=== PATIENT | male | born 1940 ===

== ENCOUNTER 2017-01-20 20:34 | Inpatient (IN) | payer OTHER ==
[2017-01-20 21:23] VITALS: BMI 37.0
--- NOTE | 2017-01-20 23:11 | CP.PCM.HP ---
History of Present Illness - History of Present Illness History of Present Illness: CC: s/p Cardiac arrest, multiple CHETAN, and AICD placement HPI: This is a 76 y/o male with only HTN who had a recent Dx of CAD and subsequent cath/PCI with CHETAN at [facility] the day of admission. He was brought in by EMS to [facility] after suffering cardiac arrest. He had been successfully resuscitated and intubated in ED, a code heart was activated, and he was sent for second cardiac cath to r/o acute occlusion of stent. Stent was noted to be patent, and patient had normal LVEF, however, he had another cardiac arrest and was resuscitated again, and this time started on lidocaine IV. He was sent to [facility] where he had placement of AICD. post-op patient remained stable, and he is here for rehabilitation in TCU. Patient has no c/c at this time. No CP/SOB. No f /c/n/v/d. ROS: 14 systems reviewed, negative other than HPI MHx: HTN, CAD SHx: s/p CHETAN recently, s/p AICD placement recently Allergies: NKDA Medications: As per discharge medications from [facility] Family Hx: Non-contributory to current illness Social Hx: Lives with family, no tobacco or EtOH Surrogate: , listed on chart Present on Admission - Present on Admission Any Indicators Present on Admission: No Past Patient History - Past Medical History & Family History Past Medical History?: Yes - Past Social History Smoking Status: Unknown If Ever Smoked - CARDIAC Hx Hypertension: Yes - PULMONARY Hx Respiratory Disorders: No - NEUROLOGICAL Hx Neurological Disorder: No - HEENT Hx HEENT Problems: No - RENAL Hx Chronic Kidney Disease: No - ENDOCRINE/METABOLIC Hx Diabetes Mellitus Type 2: Yes - HEMATOLOGICAL/ONCOLOGICAL Hx Blood Disorders: No - INTEGUMENTARY Hx Dermatological Problems: No - MUSCULOSKELETAL/RHEUMATOLOGICAL Hx Musculoskeletal Disorders: No - GASTROINTESTINAL Hx Gastrointestinal Disorders: Yes - GENITOURINARY/GYNECOLOGICAL Hx Genitourinary Disorders: No - PSYCHIATRIC Hx Substance Use: No - SURGICAL HISTORY Hx Coronary Stent: Yes - ANESTHESIA Hx Anesthesia: Yes Meds Allergies/Adverse Reactions: Allergies Allergy/AdvReac Type Severity Reaction Status Date / Time No Known Allergies Allergy Verified 01/11/17 21:43 Physical Exam - Constitutional Appears: No Acute Distress - Head Exam Head Exam: ATRAUMATIC, NORMOCEPHALIC - Eye Exam Eye Exam: EOMI, PERRL - ENT Exam ENT Exam: Mucous Membranes Moist - Neck Exam Neck exam: Positive for: Full Rom - Respiratory Exam Respiratory Exam: Clear to Auscultation Bilateral - Cardiovascular Exam Cardiovascular Exam: REGULAR RHYTHM - GI/Abdominal Exam GI & Abdominal Exam: Normal Bowel Sounds, Soft - Extremities Exam Extremities exam: Positive for: full ROM - Neurological Exam Neurological exam: Alert, CN II-XII Intact, Oriented x3 - Psychiatric Exam Psychiatric exam: Normal Affect, Normal Mood - Skin Skin Exam: Dry, Warm Assessment & Plan (1) Cardiac arrest Assessment and Plan: 76 y/o male here for rehab s/p cardiac arrest. 1) s/p cardiac arrest/CAD/HTN -Cont mexilitene PO -Cont betablocker, statin, plavix, ASA -Consider ACEi if patient BT stable -PT eval/treat 2) DVT PPx -- sq heparin Status: Acute (2) HTN (hypertension) Status: Chronic (3) DVT prophylaxis Status: Acute
[2017-01-21 08:18] LABS: HEMATOCRIT 44.8 % (35.0-51.0); MEAN CELL VOLUME 97.3 fl (80.0-94.0); MEAN CORPUSCULAR HEMOGLOBIN 33.1 pg (27.0-31.0); MEAN CORPUSCULAR HGB CONC 34.1 g/dL (33.0-37.0); WHITE BLOOD COUNT 6.9 K/uL (4.8-10.8)
[2017-01-21] MEDS: Potassium Chloride 20 mEq ER Tab PO SCH (08:24)
[2017-01-21 08:47] LABS: BLOOD UREA NITROGEN 11 mg/dl (9-20); CALCIUM 9.5 mg/dL (8.4-10.2); CARBON DIOXIDE 25 mmol/L (22-30); CHLORIDE 107 mmol/L (98-107); GFR AFRICAN-AMERICAN > 60; GLUCOSE,RANDOM 98 mg/dL (75-110); POTASSIUM 4.6 MMOL/L (3.6-5.0); SODIUM 140 mmol/l (132-148)
--- NOTE | 2017-01-21 10:43 | CARD ---
APPROVED REPORT EKG Measurement Heart [id number] <Conclusion> Normal sinus rhythm Left axis deviation Pulmonary disease pattern Abnormal ECG
[2017-01-22] MEDS: Potassium Chloride 20 mEq ER Tab PO SCH (08:31)
[2017-01-23] MEDS: Potassium Chloride 20 mEq ER Tab PO SCH (08:17)
[2017-01-23 16:00] VITALS: RESP 20
[2017-01-24] MEDS: Potassium Chloride 20 mEq ER Tab PO SCH (08:56)
[2017-01-25] MEDS: Potassium Chloride 20 mEq ER Tab PO SCH (08:15)
[2017-01-26] MEDS: Potassium Chloride 20 mEq ER Tab PO SCH (08:28)
--- NOTE | 2017-01-26 12:05 | CP.PCM.PN ---
Subjective - Date & Time of Evaluation Date of Evaluation: 01/26/17 Time of Evaluation: 09:40 - Subjective Subjective: Patient was seen and examind at bedside. He has no complaints today. He says he is feeling well. Doing well with physical therapy and regaining his strength. Denies cp, sob, n/v/d, weakness, headache. Objective - Vital Signs/Intake and Output Vital Signs (last 24 hours): Temp Pulse Resp BP Pulse Ox 97.2 F L 60 20 105/70 99 01/26/17 08:09 01/26/17 08:27 01/26/17 08:09 01/26/17 08:27 01/26/17 08:09 - Medications Medications: Current Medications Acetaminophen (Tylenol 325mg Tab) 650 mg PO Q4 PRN PRN Reason: Pain, Mild (1-3) Aspirin (Ecotrin) 81 mg PO DAILY [facility] Last Admin: 01/26/17 08:26 Dose: 81 mg Atorvastatin Calcium (Lipitor) 50 mg PO HS [facility] Last Admin: 01/25/17 21:10 Dose: 50 mg Carvedilol (Coreg) 3.125 mg PO BID [facility] Last Admin: 01/26/17 08:26 Dose: 3.125 mg Clopidogrel Bisulfate (Plavix) 75 mg PO DAILY [facility] Last Admin: 01/26/17 08:27 Dose: 75 mg Docusate Sodium (Colace) 100 mg PO TID [facility] Last Admin: 01/26/17 08:27 Dose: 100 mg Donepezil HCl (Aricept) 10 mg PO HS [facility] Last Admin: 01/25/17 21:10 Dose: 10 mg Famotidine (Pepcid) 20 mg PO Q12@0900,2000 [facility] Last Admin: 01/26/17 08:27 Dose: 20 mg Heparin Sodium (Porcine) (Heparin) 5,000 units SC Q8 [facility] PRN Reason: Protocol Last Admin: 01/26/17 08:27 Dose: 5,000 units Mexiletine HCl (Mexiletine) 150 mg PO Q8 [facility] Last Admin: 01/26/17 08:27 Dose: 150 mg Potassium Chloride (K-Dur 20 Meq Er Tab) 40 meq PO BRK [facility] Last Admin: 01/26/17 08:28 Dose: 40 meq Sennosides (Senokot Tab) 8.6 mg PO HS [facility] Last Admin: 01/25/17 21:10 Dose: 8.6 mg - Labs Labs: 01/21/17 08:06 01/21/17 08:06 - Additional Findings Additional findings: Physical Exam - Constitutional Appears: No Acute Distress - Head Exam Head Exam: ATRAUMATIC, NORMOCEPHALIC - Eye Exam Eye Exam: EOMI, PERRL - ENT Exam ENT Exam: Mucous Membranes Moist - Neck Exam Neck exam: Positive for: Full Rom - Respiratory Exam Respiratory Exam: Clear to Auscultation Bilateral - Cardiovascular Exam Cardiovascular Exam: REGULAR RHYTHM - GI/Abdominal Exam GI & Abdominal Exam: Normal Bowel Sounds, Soft - Extremities Exam Extremities exam: Positive for: full ROM - Neurological Exam Neurological exam: Alert, CN II-XII Intact, Oriented x3 - Psychiatric Exam Psychiatric exam: Normal Affect, Normal Mood - Skin Skin Exam: Dry, Warm Assessment and Plan - Assessment and Plan (Free Text) Plan: Assessment & Plan (1) Cardiac arrest Assessment and Plan: 76 y/o male here for rehab s/p cardiac arrest. 1) s/p cardiac arrest/CAD/HTN -Cont mexilitene PO -Cont betablocker, statin, plavix, ASA -Consider ACEi if patient BT stable -PT eval/treat 2) DVT PPx -- sq heparin Status: Acute (2) HTN (hypertension) Status: Chronic (3) DVT prophylaxis Status: Acute
[2017-01-27 00:04] VITALS: PULSE 60
[2017-01-27] MEDS: Potassium Chloride 20 mEq ER Tab PO SCH (08:11)
[2017-01-27 08:12] VITALS: BP 101/52
[2017-01-27 08:17] VITALS: TEMP 97.9; O2SAT 98
--- NOTE | 2017-01-27 12:16 | CP.PCM.DIS ---
Provider - Provider Date of Admission: 01/20/17 21:27 Attending physician: Yany Singh MD Primary care physician: Dr. Ramirez Time Spent in preparation of Discharge (in minutes): 20 Hospital Course - Lab Results Lab Results: Most Recent Lab Values WBC 6.9 K/uL (4.8-10.8) 01/21/17 08:06 RBC 4.60 Mil/uL (4.40-5.90) 01/21/17 08:06 Hgb 15.3 g/dL (12.0-18.0) 01/21/17 08:06 Hct 44.8 % (35.0-51.0) 01/21/17 08:06 MCV 97.3 fl (80.0-94.0) H 01/21/17 08:06 MCH 33.1 pg (27.0-31.0) H 01/21/17 08:06 MCHC 34.1 g/dL (33.0-37.0) 01/21/17 08:06 RDW 14.0 % (11.5-14.5) 01/21/17 08:06 Plt Count 228 K/uL (130-400) 01/21/17 08:06 Sodium 140 mmol/l (132-148) 01/21/17 08:06 Potassium 4.6 MMOL/L (3.6-5.0) 01/21/17 08:06 Chloride 107 mmol/L (98-107) 01/21/17 08:06 Carbon Dioxide 25 mmol/L (22-30) 01/21/17 08:06 Anion Gap 13 (10-20) 01/21/17 08:06 BUN 11 mg/dl (9-20) 01/21/17 08:06 Creatinine 1.1 mg/dl (0.8-1.5) 01/21/17 08:06 Est GFR ( Amer) > 60 01/21/17 08:06 Est GFR (Non-Af Amer) > 60 01/21/17 08:06 Random Glucose 98 mg/dL (75-110) 01/21/17 08:06 Calcium 9.5 mg/dL (8.4-10.2) 01/21/17 08:06 - Hospital Course Hospital Course: 76 y/o male with PMH HTN, recent Dx of CAD and subsequent cath/PCI with CHETAN at [facility] was s brought in by EMS to [facility] after suffering cardiac arrest. He had been successfully resuscitated and intubated in ED, a code heart was activated, and he was sent for second cardiac cath to r/o acute occlusion of stent. Stent was noted to be patent, and patient had normal LVEF, however, he had another cardiac arrest and was resuscitated again, and this time started on lidocaine IV. He was sent to [facility] where he had placement of AICD. post-op patient remained stable, and he was transferred for rehabilitation in TCU. Patient participated with PT . 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 Prescriptions provided. Counselled on diet and exercise . Keep dressing on to AICD. Can shower 14 days after AICD placement 1. s/p cardiac arrest/ cardiac arrythmias -- s/p AICD placement , on mexiletine 2.CAD s/.p stent 3.HTN 4. Dementia - on aricept 5. obesity BMi 36 Discharge Exam - Head Exam Head Exam: ATRAUMATIC, NORMOCEPHALIC - Eye Exam Eye Exam: EOMI, Normal appearance, PERRL Pupil Exam: NORMAL ACCOMODATION - ENT Exam ENT Exam: Mucous Membranes Moist, Normal Exam - Neck Exam Neck exam: Full Rom, Normal Inspection - Respiratory Exam Respiratory Exam: Clear to PA & Lateral, NORMAL BREATHING PATTERN. absent: Rales, Rhonchi, Wheezes - Cardiovascular Exam Cardiovascular Exam: REGULAR RHYTHM, RRR, +S1, +S2. absent: JVD - GI/Abdominal Exam GI & Abdominal Exam: Normal Bowel Sounds, Soft. absent: Distended, Guarding, Rebound, Tenderness - Rectal Exam Rectal Exam: Deferred - Extremities Exam Extremities exam: normal capillary refill, normal inspection, pedal pulses present - Back Exam Back exam: NORMAL INSPECTION - Neurological Exam Neurological exam: Alert, CN II-XII Intact, Oriented x3 - Psychiatric Exam Psychiatric exam: Normal Affect, Normal Mood - Skin Skin Exam: Dry, Normal Color, Warm Discharge Plan - Discharge Medications Prescriptions: Aspirin [Ecotrin] 81 mg PO DAILY #30 tabec Carvedilol [Coreg] 3.125 mg PO BID #60 tab Clopidogrel [Plavix] 75 mg PO DAILY #30 tab Docusate [Colace] 100 mg PO TID #90 cap Famotidine [Pepcid] 20 mg PO Q12H #60 tab Mexiletine 150 mg PO Q8 #90 cap Potassium Chloride [K-Dur 20 mEq ER Tab] 40 meq PO BRK #30 tab Rosuvastatin Calcium [Crestor] 25 mg PO HS #30 tab - Follow Up Plan Condition: GOOD Disposition: HOME/ ROUTINE Patient education suggested?: Yes Instructions: Fall Prevention (DC), Implantable Cardioverter Defibrillator (DC) Referrals: Ramon Ramirez MD [Medical Doctor] -
== END 2017-01-27 13:39 | disposition home or self-care (01) | DRG 950 ==
LOC: H.TCU 21:27
PROVIDERS: ADMIT Internal Medicine; ATTEND Internal Medicine
PROC: F08Z1FZ Dressing Techniques Treatment using Assistive, Adaptive, Supportive or Protective Equipment (ICD-10-PCS; principal; 2017-01-20)
PROC: F08Z0FZ Bathing/Showering Techniques Treatment using Assistive, Adaptive, Supportive or Protective Equipment (ICD-10-PCS; 2017-01-20)
PROC: F07Z9ZZ Gait Training/Functional Ambulation Treatment (ICD-10-PCS; 2017-01-20)
PROC: F07L6ZZ Therapeutic Exercise Treatment of Musculoskeletal System - Lower Back / Lower Extremity (ICD-10-PCS; 2017-01-20)
DX: Z48.812 Encounter for surgical aftercare following surgery on the circulatory system (principal); F03.90 Unspecified dementia, unspecified severity, without behavioral disturbance, psychotic disturbance, mood disturbance, and anxiety; E66.9 Obesity, unspecified; I10 Essential (primary) hypertension; Z95.810 Presence of automatic (implantable) cardiac defibrillator; I25.10 Atherosclerotic heart disease of native coronary artery without angina pectoris; Z95.5 Presence of coronary angioplasty implant and graft; Z68.36 Body mass index [BMI] 36.0-36.9, adult